=== PATIENT | male | born 1945 | race Hispanic/Latino ===

== ENCOUNTER → 2017-10-04 | Outpatient (CLI) | payer OTHER ==
[~2017-10-04] MED LIST: ASPI-449 PO; ATOR10 PO; CLON0.1T PO; DUTA0.5C15 PO; METF500T6 PO; PRED10B PO; TAMS0.4C32 PO; TIOT18CA3 IH
== END | disposition home or self-care (01) ==
LOC: OIH 10:41
PROVIDERS: ATTEND Family Medicine
DX: I10 Essential (primary) hypertension (principal)
CPT/HCPCS: 71046

== ENCOUNTER 2019-04-04 02:56 | Inpatient (IN) | payer OTHER ==
[~2019-04-04] VITALS: Ht 172.7 cm; Wt 78.9 kg
[~2019-04-04 02:56] MED LIST changes: -DUTA0.5C15 PO; +DUTA0.5C17 PO; +METF-444 PO; -METF500T6 PO
[2019-04-04 03:19] LABS: BASOPHILS % (AUTO) 0.4 % (0.0-5.0); EOSINOPHILS % (AUTO) 1.1 % (0.0-8.0); HEMATOCRIT 42.5 % (42-54); LYMPHOCYTES % (AUTO) 5.4 % (21.0-51.0); MEAN CORPUSCULAR HEMOGLOBIN 31.4 pg (27.0-33.0); MEAN CORPUSCULAR HGB CONC 34.1 g/dL (32.0-36.0); MONOCYTES % (AUTO) 8.3 % (3.0-13.0); NEUTROPHILS % (AUTO) 84.8 % (40.0-77.0); PLATELET COUNT (AUTO) 314 K/uL (130-400); RED BLOOD CELL COUNT(AUTO) 4.62 MIL/uL (4.50-6.20); WHITE BLOOD COUNT (AUTO) 14.2 K/uL (4.8-10.8)
[2019-04-04 03:28] LABS: POTASSIUM 3.8 mmol/L (3.5-5.1)
[2019-04-04 03:32] LABS: ALBUMIN 3.3 g/dL (3.5-5.0); BILIRUBIN,TOTAL 0.6 mg/dL (0.2-1.0); TOTAL PROTEIN, SERUM 6.9 g/dL (6.0-8.3)
[2019-04-04 05:20] LABS: APPEARANCE,URINE Clear (CLEAR); BILIRUBIN,URINE Small (NEGATIVE); COLOR,URINE Dark Yellow (YELLOW); GLUCOSE, URINE (UA) Negative (NEGATIVE); KETONES,URINE 15 mg/dL (NEGATIVE); LEUKOCYTE ESTERASE ,URINE Trace (NEGATIVE); NITRATE,URINE Negative (NEGATIVE); OCCULT BLOOD,URINE Negative (NEGATIVE); PROTEIN,URINE Negative (NEGATIVE)
[2019-04-04 05:28] LABS: BACTERIA,URINE Rare /HPF (None Seen); MUCUS,URINE Few LPF (None Seen); RBC,URINE None Seen /HPF (0-1); SQUAMOUS EPITHELIAL CELL,UR Few /HPF (0-2); WBC,URINE 0-1 /HPF (0-1)
[2019-04-04] MEDS ORDERED: ONDANSETRON HCL 4 MG/2 ML VIAL ONE (06:24)
[2019-04-04] MEDS ORDERED: MORPHINE SULFATE 4 MG/1ML SYG ONE (06:25)
[2019-04-04] MEDS ORDERED: LIDOCAINE HCL 2% JELLY 5 ML ONE (06:31)
[2019-04-04 07:45] VITALS: BP 117/69
[2019-04-04] MEDS: NS-20 MEQ KCL 1000ML 1,000 ML IV SCH ×2 (11:24→22:56)
[2019-04-04] MEDS ORDERED: MORPHINE SULFATE 2 MG/ML 1ML SYG ONE (11:26)
[2019-04-04] MEDS: FAMOTIDINE/PF 20 MG/2 ML VIAL IV SCH ×2 (11:37→21:04)
[2019-04-04 12:00] VITALS: BP 159/79
[2019-04-04] MEDS ORDERED: MORPHINE SULFATE 2 MG/ML 1ML SYG IVP SCH (12:00)
--- NOTE | 2019-04-04 12:17 | NUR ---
PA OF DR COLES AND DR. HE AWARE OF CONSULT;SEE ORDERS ENTERED.
[2019-04-04] MEDS ORDERED: CLONIDINE HCL 0.1 MG TABLET PO PRN (13:00)
--- NOTE | 2019-04-04 13:00 | NUR ---
NGTUBE D/C PER DR HAM, DUE TO NO OUTPUT. PT TOLERATED WELL.
[2019-04-04] MEDS ORDERED: DEXTROSE 50%-WATER 50 ML DISP.SYRIN IV PRN (13:15)
[2019-04-04] MEDS ORDERED: GLUCAGON 1MG KIT 1 MG ML IM PRN (13:15)
[2019-04-04] MEDS: ZOSYN 3.375GM+NS 50ML 50 ML IV SCH ×2 (13:59→21:03)
[2019-04-04 16:00] VITALS: BP 134/69
--- NOTE | 2019-04-04 16:06 | NUR ---
D/C PLAN CM spoke to pt regarding d/c planning. Pt is ind. and lives alone. CM attempted to obtain an emergency contact and states he does not have anyone. Denies having any home health or provider. States he will be calling someone for transportation to home when discharged. No questions or concerns verbalized. Plan to home. CM to f/u. Addendum: 04/04/19 at 1608 by BUDDY ROGERS CM Amended: Links added.
[2019-04-04] MEDS ORDERED: INSULIN HUMULIN R 100 UNIT/ML 3ML SQ SCH (16:30)
[2019-04-04] MEDS: IPRATROPIUM 0.5 MG/2.5 ML INH IH SCH ×2 (18:34→23:25)
--- NOTE | 2019-04-04 19:09 | NUR ---
FERNANDO OG OF DR. COLES STATE WAIT FOR GI RECOMMENDATIONS IF THERE IS NO RECOMMEDATIONS WILL SEE PATIENT TOMORROW.
[2019-04-04 20:00] VITALS: BP 133/75
[2019-04-04] MEDS: HYDROMORPHONE HCL 0.5 MG/0.5 ML ML IVP PRN (21:05)
[2019-04-05] VITALS: BP 126/73
[2019-04-05 04:00] VITALS: BP 136/79
[2019-04-05] MEDS: ZOSYN 3.375GM+NS 50ML 50 ML IV SCH ×3 (05:07→21:10)
[2019-04-05 05:54] LABS: HEMATOCRIT 39.5 % (42-54); MEAN CORPUSCULAR HEMOGLOBIN 30.4 pg (27.0-33.0); MEAN CORPUSCULAR HGB CONC 32.7 g/dL (32.0-36.0); PLATELET COUNT (AUTO) 310 K/uL (130-400); RED BLOOD CELL COUNT(AUTO) 4.24 MIL/uL (4.50-6.20); RED CELL DISTRIBUTION WIDTH 13.9 % (11.0-15.5); WHITE BLOOD COUNT (AUTO) 13.6 K/uL (4.8-10.8)
[2019-04-05] MEDS: INSULIN HUMULIN R 100 UNIT/ML 3ML SQ SCH ×5 (06:00→21:00)
[2019-04-05 06:16] LABS: ALBUMIN 2.7 g/dL (3.5-5.0); CREATININE 0.8 mg/dL (0.5-1.5); POTASSIUM 4.3 mmol/L (3.5-5.1)
[2019-04-05] MEDS: IPRATROPIUM 0.5 MG/2.5 ML INH IH SCH ×5 (06:36→23:40)
--- NOTE | 2019-04-05 07:45 | NUR ---
OBSERVED IN THE CHAIR ALERT AND ORIENTED X3 WITH NO ACUTE RESPIRATORY DISTRESS ON ROOM AIR. DENIES PAIN DURING ROUNDING. PLAN OF CARE DISCUSSED AND HE VOICED UNDERSTANDING.
[2019-04-05 08:00] VITALS: BP 120/66
[2019-04-05] MEDS: ATORVASTATIN CALCIUM 10 MG TABLET PO SCH ×2 (09:00→09:39)
[2019-04-05] MEDS ORDERED: **HM** DUTASTERIDE 0.5MG PO SCH (09:00)
[2019-04-05] MEDS: ASPIRIN 81MG TAB.CHEW PO SCH (09:39)
[2019-04-05] MEDS: TAMSULOSIN HCL 0.4 MG CAP.ER.24H PO SCH (09:39)
[2019-04-05] MEDS: PREDNISONE 10 MG TABLET PO SCH (09:39)
[2019-04-05] MEDS: FAMOTIDINE/PF 20 MG/2 ML VIAL IV SCH ×2 (09:39→21:10)
[2019-04-05 12:00] VITALS: BP 115/77
[2019-04-05] MEDS: NS-20 MEQ KCL 1000ML 1,000 ML IV SCH ×2 (12:42→18:03)
--- NOTE | 2019-04-05 13:28 | NUR ---
PAGE SENT TO DR Bernice HE REGARDING DIET STATUS. NEW ORDERS WERE RECEIVED AND CARRIED OUT. SEE ORDERS. PATIENT WAS UPDATED ON THE NEW ORDERS.
[2019-04-05] MEDS: METRONIDAZOLE 500 MG TABLET PO SCH ×2 (14:35→21:10)
[2019-04-05] MEDS: AMOXICILLIN/POTASSIUM CLAV 875-125 TABLET PO SCH (14:37)
--- NOTE | 2019-04-05 14:38 | NUR ---
FERNANDO ZEPEDA OF DR COLES CAME IN TO SEE THE PATIENT AND SAID NO INTERVENTION NECESSARY AT THIS TIME.
[2019-04-05 16:00] VITALS: BP 129/75
[2019-04-05] MEDS: HYDROMORPHONE HCL 0.5 MG/0.5 ML ML IVP PRN (18:21)
[2019-04-05 20:37] VITALS: BP 135/72
[2019-04-06] VITALS: BP 140/76
[2019-04-06] MEDS: NS-20 MEQ KCL 1000ML 1,000 ML IV SCH (00:48)
[2019-04-06] MEDS: AMOXICILLIN/POTASSIUM CLAV 875-125 TABLET PO SCH ×2 (03:58→14:15)
[2019-04-06 04:00] VITALS: BP 126/69
[2019-04-06 06:06] LABS: HEMATOCRIT 36.7 % (42-54); MEAN CORPUSCULAR HEMOGLOBIN 31.1 pg (27.0-33.0); MEAN CORPUSCULAR HGB CONC 33.5 g/dL (32.0-36.0); MEAN CORPUSCULAR VOLUME 92.6 fL (79-99); PLATELET COUNT (AUTO) 287 K/uL (130-400); RED BLOOD CELL COUNT(AUTO) 3.96 MIL/uL (4.50-6.20); RED CELL DISTRIBUTION WIDTH 13.8 % (11.0-15.5); WHITE BLOOD COUNT (AUTO) 13.2 K/uL (4.8-10.8)
[2019-04-06 06:19] LABS: POTASSIUM 4.1 mmol/L (3.5-5.1)
[2019-04-06] MEDS: INSULIN HUMULIN R 100 UNIT/ML 3ML SQ SCH ×2 (06:24→11:30)
[2019-04-06] MEDS: ZOSYN 3.375GM+NS 50ML 50 ML IV SCH (06:33)
[2019-04-06] MEDS: METRONIDAZOLE 500 MG TABLET PO SCH ×2 (06:33→14:15)
--- NOTE | 2019-04-06 06:45 | NUR ---
PAGED BENCHMARK Paged from [employer] via answering service to obtain order for cortez catheter. Patient could not urinate and empty bladder completely. Bladder scan of 534. Placed 16 kazakh cortez catheter, sterile technique. Maryann Chun NP returned page. Ok to place cortez.
[2019-04-06] MEDS: IPRATROPIUM 0.5 MG/2.5 ML INH IH SCH ×2 (06:50→11:40)
[2019-04-06 07:14] LABS: EOSINOPHILS % (MANUAL) 4 % (1-6); LYMPHOCYTES % (MANUAL) 8 % (22-44); MAN.DIFF COMMENT-IMPRESSION MANUAL DIFFERENTIAL; MONOCYTES % (MANUAL) 4 % (2-9); SEGMENTED NEUTROPHILS % 84 % (40-70)
[2019-04-06 07:15] LABS: PLATELET MORPHOLOGY COMMENT ADEQUATE
[2019-04-06 08:00] VITALS: BP 133/78
[2019-04-06] MEDS: ATORVASTATIN CALCIUM 10 MG TABLET PO SCH (09:00)
[2019-04-06] MEDS: TAMSULOSIN HCL 0.4 MG CAP.ER.24H PO SCH (09:19)
[2019-04-06] MEDS: FAMOTIDINE/PF 20 MG/2 ML VIAL IV SCH (09:19)
[2019-04-06] MEDS: PREDNISONE 10 MG TABLET PO SCH (09:19)
[2019-04-06] MEDS: ASPIRIN 81MG TAB.CHEW PO SCH (09:19)
[2019-04-06 12:00] VITALS: BP 132/71
== END 2019-04-06 18:15 | disposition home or self-care (01) | DRG 389 ==
LOC: EDH 02:56 → EDHIP 06:10 → 3CH 07:34
PROVIDERS: ADMIT Family Medicine; ATTEND Family Medicine
DX: K56.609 Unspecified intestinal obstruction, unspecified as to partial versus complete obstruction (principal); K57.32 Diverticulitis of large intestine without perforation or abscess without bleeding; E11.9 Type 2 diabetes mellitus without complications; E66.9 Obesity, unspecified; I10 Essential (primary) hypertension; I48.91 Unspecified atrial fibrillation; J45.909 Unspecified asthma, uncomplicated; M19.90 Unspecified osteoarthritis, unspecified site; Z68.26 Body mass index [BMI] 26.0-26.9, adult; Z98.49 Cataract extraction status, unspecified eye; Z82.49 Family history of ischemic heart disease and other diseases of the circulatory system
CPT/HCPCS: 36415; 71045; 74176; 80048; 80053; 81001; 82948; 83690; 84484; 85025; 85027; 93005; 94640; 94664; A4344; G0378; J1170; J2270; J2405; J2543; J3480; J3490; J7512

== ENCOUNTER 2019-05-11 23:21 | Inpatient (IN) | payer OTHER ==
[~2019-05-11] VITALS: Ht 172.7 cm; Wt 77.8 kg
[2019-05-11] MEDS ORDERED: ONDANSETRON HCL 4 MG/2 ML VIAL ONE (23:45)
[2019-05-11] MEDS ORDERED: SODIUM CHLORIDE 0.9% 500ML 500 ML IV ONE (23:46)
[2019-05-12 00:01] LABS: BASOPHILS % (AUTO) 0.4 % (0.0-5.0); EOSINOPHILS % (AUTO) 0.4 % (0.0-8.0); HEMATOCRIT 38.2 % (42-54); LYMPHOCYTES % (AUTO) 5.2 % (21.0-51.0); MEAN CORPUSCULAR HEMOGLOBIN 31.5 pg (27.0-33.0); MEAN CORPUSCULAR HGB CONC 33.8 g/dL (32.0-36.0); MONOCYTES % (AUTO) 7.8 % (3.0-13.0); NEUTROPHILS % (AUTO) 86.2 % (40.0-77.0); PLATELET COUNT (AUTO) 256 K/uL (130-400); RED BLOOD CELL COUNT(AUTO) 4.11 MIL/uL (4.50-6.20); RED CELL DISTRIBUTION WIDTH 15.6 % (11.0-15.5); WHITE BLOOD COUNT (AUTO) 15.4 K/uL (4.8-10.8)
[2019-05-12 00:02] LABS: APPEARANCE,URINE Clear (CLEAR); BILIRUBIN,URINE Negative (NEGATIVE); COLOR,URINE Yellow (YELLOW); GLUCOSE, URINE (UA) Negative (NEGATIVE); KETONES,URINE Trace mg/dL (NEGATIVE); LEUKOCYTE ESTERASE ,URINE Trace (NEGATIVE); NITRATE,URINE Negative (NEGATIVE); OCCULT BLOOD,URINE Negative (NEGATIVE); PH,URINE 5.5 (5.0-8.0); PROTEIN,URINE Negative (NEGATIVE); UROBILINOGEN,URINE 0.2 mg/dL (0.2-1.0)
[2019-05-12 00:11] LABS: CREATININE 0.7 mg/dL (0.5-1.5); POTASSIUM 4.1 mmol/L (3.5-5.1)
[2019-05-12 00:14] LABS: INR 1.02 (0.85-1.15); PARTIAL THROMBOPLASTIN TIME 25.3 SEC (26.3-35.5); PROTHROMBIN TIME 10.7 SEC (9.6-11.6)
[2019-05-12 00:16] LABS: BACTERIA,URINE Rare /HPF (None Seen); MUCUS,URINE Rare LPF (None Seen); RBC,URINE 0-1 /HPF (0-1); SQUAMOUS EPITHELIAL CELL,UR 0-2 /HPF (0-2)
[2019-05-12 00:27] LABS: BILIRUBIN,DIRECT 0.1 mg/dL (0.0-0.3); BILIRUBIN,TOTAL 0.6 mg/dL (0.2-1.0); TOTAL PROTEIN, SERUM 6.2 g/dL (6.0-8.3)
[2019-05-12] MEDS ORDERED: CEFTRIAXONE SODIUM 2 GM VIAL ONE (01:38)
[2019-05-12] MEDS ORDERED: MORPHINE SULFATE 4 MG/1ML SYG ONE (01:38)
[2019-05-12] MEDS ORDERED: SODIUM CHLORIDE 0.9% 100 ML IV ONE (01:39)
[2019-05-12 04:00] VITALS: BP 137/77
--- NOTE | 2019-05-12 04:00 | NUR ---
ADMISSION NOTE: Admitted to floor per stretcher from ER. Fully awake and responsive. AOx3. Amb indep. VS and recorded. Assessment done. ( See CPOE for full assessment) Oriented to room and use of call light. Policies and procedures explained. Verbalized understanding. Plan of care initiated. Denies pain at this time. Needs attended and cared for. Kept monitored. No apparent distress noted.
[2019-05-12] MEDS ORDERED: ZOSYN 3.375GM+NS 50ML 50 ML IV SCH ×2 (04:15→13:00)
[2019-05-12] MEDS ORDERED: ZOSYN 3.375GM+NS 50ML 50 ML IV ONE (04:17)
[2019-05-12] MEDS: SODIUM CHLORIDE 0.9% 1000ML 1,000 ML IV SCH ×3 (04:28→19:39)
[2019-05-12] MEDS ORDERED: PIPERACILLIN SODIUM/TAZOBACTAM 3.375 GM VIAL IV SCH ×2 (04:30→12:30)
[2019-05-12] MEDS ORDERED: MORPHINE SULFATE 2 MG/ML 1ML SYG IVP PRN (04:30)
[2019-05-12] MEDS ORDERED: ONDANSETRON HCL 4 MG/2 ML VIAL IVP PRN (04:30)
[2019-05-12] MEDS ORDERED: ALBU8.5H8 IH (04:49)
[2019-05-12 08:00] VITALS: BP 140/78
[2019-05-12 11:00] VITALS: BP 129/71
[2019-05-12 13:16] LABS: HEMATOCRIT 35.8 % (42-54); MEAN CORPUSCULAR HEMOGLOBIN 31.2 pg (27.0-33.0); MEAN CORPUSCULAR HGB CONC 33.4 g/dL (32.0-36.0); MEAN CORPUSCULAR VOLUME 93.5 fL (79-99); PLATELET COUNT (AUTO) 248 K/uL (130-400); RED BLOOD CELL COUNT(AUTO) 3.83 MIL/uL (4.50-6.20); RED CELL DISTRIBUTION WIDTH 15.5 % (11.0-15.5); WHITE BLOOD COUNT (AUTO) 13.2 K/uL (4.8-10.8)
--- NOTE | 2019-05-12 15:00 | NUR ---
PT HAD CLEAR LIQ FOR LUNCH; REPORTS ABD PAIN RETURNING. PT REQUESTS TO BE MADE NPO AGAIN. WILL NOTIFY
[2019-05-12] MEDS: LEVOFLOXACIN 500 MG/D5W 100 ML 100 ML IV SCH (15:55)
[2019-05-12 16:00] VITALS: BP 142/76
[2019-05-12] MEDS ORDERED: CLONIDINE HCL 0.1 MG TABLET PO PRN (16:00)
--- NOTE | 2019-05-12 16:03 | NUR ---
INITIAL MET W PT AT [facility], AAOX[facility], ALONE; PT STATES LIVES ALONE, ESTRANGED, NO FRIENDS TO DRIVE HIM HOME ,W ILL GET HIMSELF HOME, NO NOK ON HIS FACE SHEET, STATES ESTRANGED FORM HIS FAMILY. DECLINED TO EXPAND ON THIS. HAS NO DC NEEDS, NO DME; IS MOBILE /ACTIVE/DRIVES, ETC. LOOKS YOUNGER THAN HIS STATED AGE. DCP IS HOME NO SUPPORT SYSTEM IS A BIG RISK FACTOR, FOR THE FURUTRE, BUT PT INDP AND SELF SUFFICIANT AT THIS ITME. DISCUSS DX, [address] RD CONSULT FOR DIVERTICULITIS TRIGGER FOODS. Addendum: 05/12/19 at 1607 by ALEXSANDER VINCENT RN CM Amended: Links added.
--- NOTE | 2019-05-12 16:08 | NUR ---
DISCUSSED PLAN OF CARE DC HOME PROBABLY TOMORR- STAYS OBS Addendum: 05/12/19 at 1609 by ALEXSANDER VINCENT RN CM Amended: Links added.
--- NOTE | 2019-05-12 17:16 | NUR ---
CONTACTED Melodie CERVANTES NP FOR BENCHMARK FOR CLARIFICATION OF OBS VS IN PT STATUS: REC'D INSTRUCTION TO KEEP OBS.
[2019-05-12] MEDS: IPRATROPIUM/ALBUTEROL SULFATE 3 ML SOLUTION IH PRN (18:45)
--- NOTE | 2019-05-12 18:53 | NUR ---
REC'D ORDER FROM DR AGUILAR FOR GEN SURG CONSULT WITH DR COLES. NOTIFIED DR COLES OF CONSULT.
[2019-05-12 19:18] VITALS: BP 126/71
--- NOTE | 2019-05-12 19:55 | NUR ---
ASSESS SHIFT ASSESSMENT DONE, PLEASE REFER TO CHART. PT DENIES ANY ABDOMINAL PAINS NOR DISCOMFORTS AT THIS TIME. NO DISTRESS NOTED. KEPT NPO. CALL LIGHT WITHIN REACH. WILL MONITOR PT. Addendum: 05/12/19 at 2205 by MACKENZIE KHAN RN RN Amended: Links added.
[2019-05-12] MEDS: METRONIDAZOLE 500MG/100ML BAG 100 ML IV SCH (21:19)
--- NOTE | 2019-05-12 21:45 | NUR ---
CONSULT TRIED TO GET A HOLD OF DR COLES FOR SURGICAL CONSULT. NO ANSWERING SERVICE WHEN CALLED OFFICE NUMBER. RESOURCE NURSE MADE AWARE. CALLED MD HORN AND LEFT MESSAGE. AWAITING CALL BACK.
--- NOTE | 2019-05-12 21:54 | NUR ---
CALL BACK DR COLES CALLED BACK AND STORE MERCHANDISER INFORMED OF CONSULT. STATED TO PLACE PT ON HIS CENSUS AND HE WILL SEE PT IN AM.
[2019-05-12 23:48] VITALS: BP 122/67
--- NOTE | 2019-05-13 01:35 | NUR ---
ROUNDS PT RESTING WELL, FAIRLY ASLEEP WITH RESPIRATIONS EVEN AND UNLABORED. NO DISTRESS NOTED. KEPT COMFORTABLE. WILL MONITOR PT.
[2019-05-13] MEDS: SODIUM CHLORIDE 0.9% 1000ML 1,000 ML IV SCH ×2 (03:46→12:15)
[2019-05-13 04:00] VITALS: BP 130/63
[2019-05-13] MEDS: METRONIDAZOLE 500MG/100ML BAG 100 ML IV SCH ×2 (04:51→13:32)
[2019-05-13 05:41] LABS: BASOPHILS % (AUTO) 0.3 % (0.0-5.0); EOSINOPHILS % (AUTO) 0.7 % (0.0-8.0); HEMATOCRIT 38.4 % (42-54); LYMPHOCYTES % (AUTO) 6.4 % (21.0-51.0); MEAN CORPUSCULAR HGB CONC 32.7 g/dL (32.0-36.0); MEAN CORPUSCULAR VOLUME 94.9 fL (79-99); MONOCYTES % (AUTO) 11.4 % (3.0-13.0); NEUTROPHILS % (AUTO) 81.2 % (40.0-77.0); PLATELET COUNT (AUTO) 238 K/uL (130-400); RED BLOOD CELL COUNT(AUTO) 4.05 MIL/uL (4.50-6.20); RED CELL DISTRIBUTION WIDTH 15.5 % (11.0-15.5); WHITE BLOOD COUNT (AUTO) 15.6 K/uL (4.8-10.8)
--- NOTE | 2019-05-13 05:45 | NUR ---
TRANSFER WELDING SYSTEMS AND EQUIPMENT REPAIRER WAS MADE AWARE THAT PT NEED TRANSFER TO 3RD FLOOR FOR STAFFING REASONS. PT MADE AWARE OF CHANGE IN ROOM. CALLED REPORT TO PEYTON RONDON. TRANSFERRED PT TO ROOM 305. FOR MORE CARE AND MANAGEMENT.
--- NOTE | 2019-05-13 05:45 | NUR ---
TRANSFER OF CARE Received report and transfer of care from JHONY Ryan. Patient arrived via wheelchair. No shortness of breath or distress. Patient states no pain or chest pain. Patient NPO and on IV fluids. 20 gauge to the left wrist is leaking; replaced IV with 20 gauge to left forearm. Used clean aseptic technique. Bed at its lowest, locked position. Call light within reach. Encourage patient to call for assistance.
[2019-05-13 05:49] LABS: CREATININE 0.8 mg/dL (0.5-1.5); POTASSIUM 4.1 mmol/L (3.5-5.1)
[2019-05-13] MEDS: IPRATROPIUM/ALBUTEROL SULFATE 3 ML SOLUTION IH PRN ×2 (06:54→12:16)
[2019-05-13 07:47] VITALS: BP 116/65
[2019-05-13] MEDS: PREDNISONE 10 MG TABLET PO SCH (08:50)
[2019-05-13] MEDS: TAMSULOSIN HCL 0.4 MG CAP.ER.24H PO SCH (08:50)
[2019-05-13] MEDS: ASPIRIN 81 MG EC TAB PO SCH (08:50)
[2019-05-13] MEDS: ATORVASTATIN CALCIUM 10 MG TABLET PO SCH (08:50)
[2019-05-13 11:00] VITALS: BP 134/63
[2019-05-13] MEDS: LEVOFLOXACIN 500 MG/D5W 100 ML 100 ML IV SCH (15:32)
[2019-05-13 16:00] VITALS: BP 101/66
[2019-05-13 20:00] VITALS: BP 103/59
[2019-05-14] VITALS: BP 123/61
[2019-05-14 04:00] VITALS: BP 117/63
[2019-05-14 04:40] LABS: BASOPHILS % (AUTO) 0.3 % (0.0-5.0); EOSINOPHILS % (AUTO) 1.8 % (0.0-8.0); HEMATOCRIT 31.6 % (42-54); MEAN CORPUSCULAR HGB CONC 33.9 g/dL (32.0-36.0); MEAN CORPUSCULAR VOLUME 94.2 fL (79-99); MONOCYTES % (AUTO) 10.8 % (3.0-13.0); NEUTROPHILS % (AUTO) 77.1 % (40.0-77.0); PLATELET COUNT (AUTO) 219 K/uL (130-400); RED BLOOD CELL COUNT(AUTO) 3.35 MIL/uL (4.50-6.20); RED CELL DISTRIBUTION WIDTH 15.5 % (11.0-15.5); WHITE BLOOD COUNT (AUTO) 9.4 K/uL (4.8-10.8)
[2019-05-14 04:46] LABS: CREATININE 0.7 mg/dL (0.5-1.5); POTASSIUM 3.9 mmol/L (3.5-5.1)
[2019-05-14] MEDS: METRONIDAZOLE 500MG/100ML BAG 100 ML IV SCH ×3 (06:08→14:00)
[2019-05-14] MEDS: SODIUM CHLORIDE 0.9% 1000ML 1,000 ML IV SCH (06:09)
[2019-05-14 08:27] VITALS: BP 117/65
[2019-05-14] MEDS: ASPIRIN 81 MG EC TAB PO SCH (09:05)
[2019-05-14] MEDS: PREDNISONE 10 MG TABLET PO SCH (09:05)
[2019-05-14] MEDS: TAMSULOSIN HCL 0.4 MG CAP.ER.24H PO SCH (09:06)
[2019-05-14 11:36] VITALS: BP 121/63
[2019-05-14] MEDS: ATORVASTATIN CALCIUM 10 MG TABLET PO SCH (12:09)
[2019-05-14] MEDS: LEVOFLOXACIN 500 MG/D5W 100 ML 100 ML IV SCH (15:25)
== END 2019-05-14 18:41 | disposition home or self-care (01) | DRG 392 ==
LOC: EDH 23:21 → EDHIP 05-12 03:15 → OBSVTOIN 05-12 03:15 → 4BH 05-12 03:27 → 3BH 05-13 05:28
PROVIDERS: ADMIT Internal Medicine Pulmonary Disease; ATTEND Internal Medicine Pulmonary Disease
DX: K57.32 Diverticulitis of large intestine without perforation or abscess without bleeding (principal); I48.91 Unspecified atrial fibrillation; E11.9 Type 2 diabetes mellitus without complications; I10 Essential (primary) hypertension; I48.2 Chronic atrial fibrillation; J45.909 Unspecified asthma, uncomplicated; M19.90 Unspecified osteoarthritis, unspecified site
CPT/HCPCS: 36415; 74176; 80048; 80076; 81001; 82550; 82948; 83690; 85025; 85027; 85610; 85730; 87040; 93005; 94640; 94664; G0378; J0696; J1956; J2270; J2405; J2543; J3490; J7030; J7040; J7512